=== PATIENT | male | born 1935 | race Caucasian/White ===

== ENCOUNTER 2024-01-14 09:39 | Outpatient (CLI) | payer OTHER, SELFPAY ==
--- OUTSIDE RECORDS SUMMARY | 2024-01-27 23:50 | XMS_ITS | Continuity of Care Document ---
Author Organization [place] [facility] Address [id number] [place] [address] Phone Care Team Providers Care Still Operator Brandy Name Role Phone Weight DO, Antwon Unavailable Unavailable Procedures Procedure Date Obsrv Care D/c Da [facility] Init Obsrv Care-da E [facility] Advance Directives Directive Yes / No Effective Date File Name No Information Encounters Encounter Description Practice Location Reason(s) For Visit Diagnoses Date Provider Providers Copied on Encounter Obsrv Care D/c Da [facility], [address] [address], [place], [place], [id number], tel:[phone] [facility] Hospitalists No Information Weight Antwon. [address] [place] [address], [id number], [place]. tel:[phone] Referring Provider: Antwon Alarcon, [address] [place] [address], [id number] . tel:[phone] In Obsrv Care-da E [facility], [address] [address], [place], [place], [id number], tel:[phone] [facility] Intensivists No Information 5 No Information Family History Family Member Type Diagnosis Age At Onset No Information Payers Payer name Insurance type Covered democrat ID Authoriza timelissa(s) Medicare MB [id number] Social History Type Description Quantity Date Captured Comments Sex Male Smoking Status No Information Chief Complaint And Reason For Visit No Information Reason For Referral Reason For Referral No Information History Of Present Illness Encounter Date Complaint History Of Prese nt Illness No Information Functional Status Date Functional Assessmen t No Information Instructions Date Instruction Additional Infor mation No Information Assessments Type Assessment Date No Information Patient Care Teams Name Effective Dates (start - stop) Status Members No Information
--- OUTSIDE RECORDS SUMMARY | 2024-01-27 23:50 | XMS_ITS | Continuity of Care Document ---
Author Organization [facility] Address [address] [place] [address] Phone Care Team Providers Care Behavioral Medical Director Name Role Phone Néstor THOMAS, Alyssa Unavailable Unavailable Allergies, Adverse Reactions, Alerts Substance Reaction Status Criticality No Known Allergies Active No Inform ation Medications Medication Instructions Dosage Effective Dates (start - stop) Status Comments PROAIR RESPICLICK (unknown strength) Not Available - Active DURLAZA (unknown strength) Not Available - Active APLENZIN (unknown strength) Not Available - Active COMBIVENT RESPIMAT (unknown strength) Not Available - Active LISINOPRIL (unknown strength) Not Available - Active METOPROLOL TARTRATE (unknown strength) Not Available - Active SIMVASTATIN (unknown strength) Not Available - Active VENLAFAXINE HCL ER (unknown strength) Not Available - Active Procedures Procedure Date Office/Outpatient Visit,Est, Mod 2018 X-Ray Exam Lower Spine 2-3 Views 2018 Office/Outpatient Visit,Est, Mod 2017 X-Ray Exam Lower Spine 2-3 Views 2017 Office/Outpatient Visit,Est, Low 2017 Office/Outpatient Visit,Est, Mod 2016 X-Ray Exam Lower Spine 2-3 Views 2016 Office/Outpatient Visit,Est, Mod 2016 X-Ray Exam Lower Spine 2-3 Views 2016 Office/Outpatient Visit,Est, Mod 2016 X-Ray Exam Lower Spine 2-3 Views 2016 Postop Followup Visit X-Ray Exam Lower Spine 2-3 Views 2015 Postop Followup Visit X-Ray Exam Lower Spine 2-3 Views 2015 Postop Followup Visit Lumbar Spine Fusion, Posterolateral Insert Spine Fixation, Posterior 2015 Allograft, Spine Surg, Morselized Autograft, Spine Surgery, Local 016 Pa Assist Lumbar Spine Fusion, Posterola teral Pa Assist Insert Spine Fixation, Posteri or Remove Lumbar Spine Lamina, 3+ Segs Pa Assist Remove Lumbar Spine Lamina, 3+ Segs Office/Outpatient Visit,Est, Mod 2015 Office/Outpatient Visit,Est, Mod 2015 Office/Outpatient Visit,New, Mod 2015 X-Ray Exam Lwr Spine, Min 4 Views Postop followup visit Low back disk surgery/decompress 2007 Added spine disk surgery/decompress Office consultation, moderate 8 X-ray exam lower spine 2-3 views 2007 Advance Directives Directive Yes / No Effective Date File Name No Information Encounters Encounter Description Practice Location Reason(s) For Visit Diagnoses Date Provider Providers Copied on Encounter [facility], [address], [place], [place], [id number], tel:[phone] [facility] No Information 201 9 Mehbod Amir. [facility], [address] [place] [address], [id number], [place]. tel:[phone] Office/Outpa tient Visit,Est, Mod [facility], [address], [place], [place], [id number], [place] tel:[phone] [facility] Low back pain 8-201 9 Mehbod Amir. [facility], [address] [place] [address], [id number], . tel:[phone] Referring Provider: Dionicio Irizarry, [facility], [place], [address]. tel:[phone] Office/Outpa tient Visit,Est, Mod [facility], [address], [place], [place], [id number], [place] tel:[phone] [facility] Low back pain Mar-0 6201 8 Mehbod Amir. [facility], [address] [place] [address], [id number], [place]. tel:[phone] Referring Provider: Dionicio Irizarry, [facility] [address], [place], [address]. tel:[phone] Office/Outpa tient Visit,Est, Low [facility], [address], [place], [place], [id number], [place] tel:[phone] [facility] Radiculopath y, lumbar region 201 8 Mehbod Amir. [facility], [address] [place] [address], [id number], [place]. tel:[phone] Referring Provider: Dionicio Irizarry [facility] [address], [place], [address]. tel:[phone] Office/Outpa tient Visit,Est, Mod [facility], [address], [place], [place], [id number], [place] tel:[phone] [facility], lumbar region May-0 9-201 7 Eckroth Bert. [address] [place] [address], [id number], [place]. tel:[phone] Referring Provider: Dionicio Irizarry [facility] [address], [place], [address]. tel:[phone] Office/Outpa tient Visit,Est, Mod [facility], [address], [place], [place], [id number], [place] tel:[phone] [facility] [place] [facility], lumbar region Nov- 4-201 7 Mehbod Amir. [facility], [address] [place] [address], [id number], [place]. tel:[phone] Referring Provider: Dionicio Irizarry, [facility] [address] [facility], [place], [address]. tel:[phone] Office/Outpa tient Visit,Est, Mod [facility], [address] [place] [address], [id number], tel:[phone] [facility] [place] [facility]icul[facility], lumbar region 3 0-201 7 Mehbod Amir. [facility], [address] [place] [address], [id number], [place]. tel:[phone] Referring Provider: Dionicio Irizarry, [facility] [address] [place] [address], [place], [address]. tel:[phone] [facility], [address] [place] [address], [id number], [place] tel:[phone] [facility] [facility], lumbar region 0-201 6 Mehbod Amir. [facility], [address] [place] [address], [id number], . tel:[phone] Referring Provider: Dionicio Irizarry [facility] [address] [place] [address], [place], [address]. tel:[phone] [facility], [address] [place] [address], [id number], tel:[phone] [facility] [facility]icul[facility], lumbar region May-1 7-201 6 Mehbod Amir. [facility], [address] [place] [address], [id number], [place]. tel:[phone] Referring Provider: Dionicio Irizarry, [facility] [address] [facility], [place], [address]. tel:[phone] [facility], [address] [place] [address], [id number], [place] tel:[phone] [facility] [facility], lumbar region Oct-0 3-201 6 [facility] Bert. [address] [place] [address], [id number], . tel:[phone] Referring Provider: Dionicio Irizarry, [employer] [address] [facility], [place], [address]. tel:[phone] [facility], [address], [place], [place], [id number], [place] tel:[phone] [facility] No Information 0 201 6 Mehbod Amir. [facility], [address] [place] [address] [address], [place], [id number], [place]. tel:[phone] Referring Provider: Dionicio Irizarry, [employer] [address] [place] [address], [place], [address]. tel:[phone] Office/Outpa tient Visit,Est, Mod [facility], [address] [place] [address], [id number], [place] tel:[phone] [facility] [place] Radiculopath y, lumbar regionOther spondylosis, lumbosacral region 2 6 Mehbod Amir. [facility], [address] [place] [address] [place] [address], [id number], [place]. tel:[phone] Referring Provider: Dionicio Irizarry, [employer] [address] [place] [address], [place], [address]. tel:[phone] Office/Outpa tient Visit,Est, Mod [facility], [address], [place], [place], [id number], [place] tel:[phone] [facility] Radicul[facility], lumbar regionOther spondylosis, lumbosacral region 6 Pandiscio Doris. [facility], [address] [place] [address], [address], [place], [place], [id number], [place]. tel:[phone] Referring Provider: Dionicio Irizarry, [employer] [address] [place] [address], [place], [address]. tel:[phone] Office/Outpa tient Visit,New, Mod [facility], [address], [place], [place], [id number], [place] tel:[phone] [facility] Radiculopath y, lumbar regionOther spondylosis, lumbosacral region 6 Shayy George. [facility], [address], [address], [place], [place], [id number], [place]. tel:[phone] Referring Provider: Dionicio Irizarry, [facility], [place], [address]. tel:[phone] Z [facility], [address] [place], [place] [address], [place], [place], [facility], [place] tel:[phone] [facility] No Information 8 No Information Referring Provider: [facility] [address], [place], [address]. [phone] [facility], [address] [place], [place] [address], [place], [place], [facility], [place] [phone] [facility] No Information 8 No Information Referring Provider: [facility] [address], [place], [address]. tel:[phone] Office consultation , moderate Z [facility], [address] [place] [address], [place], [facility], [place] tel:[phone] [facility] No Information 8 No Information Referring Provider: [facility] [address], [place], [address]. tel:[phone] Family History Family Member Type Diagnosis Age At Onset No Information Payers Payer name Insurance type Covered libertarian ID Authoriza tion(s) [employer] Medicare Gold Choice Rajani COLEMAN [id number] [facility] 09 [id number] Social History Type Description Quantity Date Captured Comments Sex Male Smoking Status No Information Chief Complaint And Reason For Visit No Information Reason For Referral Reason For Referral No Information Plan Of Treatment Date Type Action Status Future Order: Radiology Order AP /Lat/Flex/Ext Lumb (APLatFlExL), Ordered on: Ordered History Of Present Illness Encounter Date Complaint History Of Prese nt Illness No Information Functional Status Date Functional Assessmen t No Information Instructions Date Instruction Additional Infor mation Weight management: I nstructed to return to General Practitioner timeframe: 1 Month. Related to Overweight Weight Management Education Rela gerald to Overweight Weight management: I nstructed to return to General Practitioner timeframe: 1 Month. Related to Overweight Weight Management Education Rela gerald to Overweight Blood Pressure Management Relate d to Unspecified Essential Hypertension Instructed to return to General Practitioner timeframe: 1 Month. Related to Unspecified Essential Hypertension Assessments Type Assessment Date No Information Patient Care Teams Name Effective Dates (start - stop) Status Members No Information
--- OUTSIDE RECORDS SUMMARY | 2024-01-27 23:51 | XMS_ITS | Continuity of Care Document ---
Author Name [facility] Organization [facility] Care Team Providers Care Computer Game Tester Name Role Phone [facility] Unavailable Unavailable Problems Combined list of problems from Department of [facility] and [facility] Affairs facilities. It does not include entries that were removed or entered in error. 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 [facility] L/T Use Anticoag (current) Active Condition [facility] Mixed hyperlipidemia Active Condition [facility] 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 Medication Details Route Status Patient Instructions Prescription Expires Prescription Number Last Dispense Date Ordering Provider Order Date Order Qty Source MULTIVITAMI NS CAP/TAB TAKE ONE TABLET BY MOUTH EVERY DAY ORAL ACTIVE DARLINE MIKE 2006 [facility] Allergies, Adverse Reactions, Alerts Combined list of allergies from Department of [facility] and Veterans Affairs facilities. It does not include entries that were removed or entered in error. Substance Category Reaction Severity Reaction type Status Date Reported Comments Source No Known Allergies Drug allergy (disorder) active 09/23/2007 S[facility] Kennedy Immunizations Combined list of available immunizations from the Department of Defense and Veterans Affairs facilities. Immunization Series Date Given Administered By Site Reaction Lot Number CVX Code Drug Glove Turner Status Comments Source INFLUENZA (HISTORICAL) 2006 88 complet ed [facility] PNEUMOCOCCAL, UNSPECIFIED FORMULATION 2006 109 complet ed [facility] INFLUENZA, UNSPECIFIED FORMULATION 2004 88 complet ed [facility] INFLUENZA, UNSPECIFIED FORMULATION 2003 88 complet ed [facility] INFLUENZA, UNSPECIFIED FORMULATION 2002 AKANKSHA AGUILA 88 complet ed [facility] INFLUENZA, UNSPECIFIED FORMULATION 2001 88 complet ed [facility] INFLUENZA, UNSPECIFIED FORMULATION 2000 88 complet ed [facility] PNEUMOCOCCAL, UNSPECIFIED FORMULATION 2000 109 complet [facility] TD(ADULT) UNSPECIFIED FORMULATION 1998 139 complet [facility] Encounters Combined list of: 1) Encounters from Department of [facility] Affairs facilities going back up to thelast 18 months. 2) Encounters from the Department of [facility] facilities going back up to 280 months. Location Location Details Encounter Type Encounter Number Reason For Visit Attending Provider ADM Date DC Date Status Disposition Source [facility] Outpatient Encounter [id number] 07/18 [facility] Procedures Combined list of: 1) Procedures from [facility] facilities going back up to thelast 18 months, not all [place] non-surgical procedures are included; 2) All procedures from the Department [facility] facilities. Procedure Procedure Type Code Date Perfomer Comments Sourc e DIAGNOSTIC ULTRASOUND OF PERIPHERAL VASCULAR SYSTEM 01/23/2004 [facility] CULTURE, BACTERIAL; BLOOD, AEROBIC, WITH ISOLATION AND PRESUMPTIVE IDENTIFICATION OF ISOLATES (INCLUDES ANAEROBIC CULTURE, IF APPROPRIATE) 01/22/2004 [facility] Social History Combined list of available smoking, tobacco, and other social history from Department of Defense and Veterans Affairs facilities. Social History Type Response Date Comment Sourc e Tobacco smoking status NHIS CURRENT TOBACCO USER 07/07/2007 [facility] This section is an empty social history section. [facility] Advance Directives List of completed, amended, or rescinded Advance Directives on record at Department of Veterans Affairs facilities. An actual copy of the Directive is not included. Date Advance Directive Provider Source 06/26/2004 ADVANCE DIRECTIVE SADE KENT I [facility]
--- OUTSIDE RECORDS SUMMARY | 2024-01-27 23:51 | XMS_ITS | Clinical Summary ---
Author Organization [employer] [facility] Address [place], [place] [address] Care Team Providers Care Finishing Range Supervisor Name Role Phone Alyssa Palm MD Unavailable [phone] Grayson Nails MD Unavailable Antonino Cardona DO Primary Care Provider [phone] [facility] Chai Jain Unavailable [phone] Allergies Active Allergy Reactions Criticality Noted Date Comments Cilostazol Dizziness 12/11/2016 Medications Medication Sig Dispensed Refills Start Date End Date Status aspirin (ECOTRIN) 81 mg enteric coated tabletIndications :Multiple lacunar infarcts (HC),Atherosclero sis of [place] coronary artery of [place] heart without angina pectoris,PAD (peripheral artery disease) (HC) Take 1 Tablet (81 mg) by mouth once daily with a meal. 0 02/28/2022 Active albuterol-ipratro pium (DuoNeb) (2.5-0.5 mg) in 3 mL NEBULIZATION solutionIndicatio ns:Mucopurulent chronic bronchitis (HC) Use 3-4 times daily as needed 150 mL 11 07/24/2022 Active Additional Information Patient taking differently: 1 Neb Neb Q 6H PRN, Shortness Of Breath, Wheezing, Use 1-3 times daily as needed, Reported on 01/14/2024 fluticasone (50 mcg per actuation) nasal solution (FLONASE)Indicati ons:Chronic allergic rhinitis Inhale 1-2 Sprays to both nostrils once daily. 48 g 3 07/24/2022 Active albuterol HFA (PRO-AIR; VENTOLIN; PROVENTIL) 90 mcg/actuation inhalerIndication s:Mucopurulent chronic bronchitis (HC) Inhale 1-2 Puffs by mouth every 4 hours if needed for Shortness of Breath 2nd choice or Wheezing 1st choice. 1 Each 1 07/24/2022 Active oxygen-air delivery systems (HOME OXYGEN)Indication s:Mucopurulent chronic bronchitis (HC) Oxygen for home use. Liters per minute: 2 per nasal cannula. Frequency of use: Continuous with portability.;. Length of need: 99 Months. 1 Each 01/16/2023 Active rosuvastatin (CRESTOR) 10 mg tabletIndications :Multiple lacunar infarcts (HC),Mixed hyperlipidemia,PA D (peripheral artery disease) (HC),Atherosclero sis of [place] coronary artery of [place] heart without angina pectoris TAKE 1 TABLET (10 MG) BY MOUTH AT BEDTIME. 90 Tablet 2 08/09/2023 Active carvediloL (COREG) 3.125 mg tabletIndications :Essential hypertension,Athe rosclerosis of [place] coronary artery of [place] heart without angina pectoris TAKE 1 TABLET TWICE DAILY WITH MEALS 180 Tablet 3 09/29/2023 Active gabapentin (NEURONTIN) 100 mg capsuleIndication s:Trigeminal neuralgia Take 4 Capsules (400 mg) by mouth two times daily. 720 Capsule 1 01/22/2024 Active oxygen-air delivery systems (HOME OXYGEN)Indication s:COPD with acute exacerbation (HC) Portable oxygen - carrying style - has home oxygen tanks. Liters per minute: 2 per nasal cannula. Frequency of use: Continuous with portability.;. Length of need: 99 Months. 1 Each 01/22/2024 Active tiotropium (SPIRIVA HANDIHALER) 18 mcg inhalation capsuleIndication s:Mucopurulent chronic bronchitis (HC),COPD mixed type (HC) Inhale 1 Capsule (18 mcg) by mouth once daily. 90 Capsule 3 01/22/2024 Active loratadine (CLARITIN) 10 mg tabletIndications :Chronic allergic rhinitis Take 1 Tablet (10 mg) by mouth once daily. 30 Tablet 07/24/2022 06/05/202 4 Discontinue d(*Patient states no longer taking) buPROPion (Wellbutrin SR) 150 mg Sustained-Release tabletIndications :Major depressive disorder, recurrent episode, mild (HC) Take 1 Tablet (150 mg) by mouth every morning. 90 Tablet 1 07/24/2022 4 Discontinue d(*Med complete/Re gimen complete/Le mallika of care change) tiotropium (SPIRIVA HANDIHALER) 18 mcg inhalation capsuleIndication s:Mucopurulent chronic bronchitis (HC),COPD mixed type (HC) Inhale 1 Capsule (18 mcg) by mouth once daily. 90 Capsule 3 03/04/2023 4 Discontinue d(Reorder (E-cancel not sent)) gabapentin (NEURONTIN) 100 mg capsuleIndication s:Trigeminal neuralgia Take 3 Capsules (300 mg) by mouth two times daily. Take 300mg BID 180 Capsule 5 07/07/2023 4 Discontinue d(Reorder (E-cancel not sent)) sennosides-docusa te (SENOKOT S) (8.6-50 mg) tabletIndications :Other constipation Take 2-3 Tablets by mouth 2 times daily if needed for Constipation. 180 Tablet 1 09/30/2023 4 cefuroxime axetil (CEFTIN) 500 mg tabletIndications :Pneumonia due to COVID-19 virus Take 1 Tablet (500 mg) by mouth two times daily for 5 days. 10 Tablet 01/16/2024 4 Discontinue d(*Med complete/Re gimen complete/Le mallika of care change) dexAMETHasone (DECADRON) 6 mg tabletIndications :COPD with acute exacerbation (HC) Take 1 Tablet (6 mg) by mouth once daily with a meal for 8 doses. 8 Tablet 01/17/2024 4 Hospital, Clinic, or Other Facility Administered Medication Ordered Dose Route Frequency Start Date End Date Status cyanocobalamin (VITAMIN B12) 1,000 mcg/mL injection 1,000 mcgIndications:Vit bae B12 deficiency 1000 mcg IM Q 4 WEEKS (28 DAYS) 01/17/2022 4 Discontinued Active Problems Problem Noted Date Diagnosed Date Weight loss, unintentional 01/15/2024 COPD with acute exacerbation 2/2 COVID-19 PNA Pneumonia due to COVID-19 virus 01/14/2024 Sepsis 2/2 COVID-19 Pnuemonia 01/14/2024 Acute respiratory failure wi th hypoxia 2/2 COVID-PNA & COPD Exacerbation 01/14/2024 Aspiration pneumonia 04/25/2023 Elevated troponin 04/25/2023 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 BPH (benign prostatic hyperplasia) 10/31/2022 10/31/2022 Esophageal reflux 10/31/2022 10/31/2022 Anxiety 08/15/2020 After-cataract of left eye with vision obscured 04/26/2019 Bilateral pseudophakia 04/26/2019 Urinary retention 09/22/2017 Major depressive disorder, recurrent episode, mi ld 09/22/2017 Near syncope 12/31/2016 H/o Multiple lacunar infarcts 12/31/2016 Overview: Head CT on 12/31/16 In the left basal ganglia Macrocytic anemia 12/13/2016 History of DVT (deep vein thrombosis) 04/16/2016 Overview: Unprovoked DVT of right leg in 2004, treated with warfarin for anticoagulation for 6 months and then discontinued. No recurrence. Coronary atherosclerosis 04/12/2016 Overview: Coronary angiogram (08/22/2010): Coronary artery dominance is left. Normal left main coronary artery, left circumflex artery and right coronary artery. The middle left anterior descending artery is 20% obstructed by a single discrete lesion. The distal left anterior descending artery is 20% obstructed by a single discrete lesion. 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 History of smoking 30 or more pack years 016 Macrocytic anemia with vitamin B12 deficiency Overview: 12/2014 - MCV 109 - B12 low at 164 Post herpetic neuralgia 06/08/2013 Prostate nodule 05/15/2012 Mucopurulent chronic bronchitis 10/08/2011 Overview: Pulmonary function test (01/03/2010): Moderately severe obstructive lung disease, mild air trapping, increased obstruction and resistance to airflow, and normal range gas transfer. Spinal stenosis, lumbar joanne on, without neurogenic claudication 06/01/2008 Overview: S/p DECOMPRESSION L1-S1, POSTERIOR SPINE FUSION WITH INSTRUMENTATION L4-5, TRANSFORAMINAL LUMBAR INTERBODY FUSION L4-5??by Dr. Palm on 04/17/16. Essential hypertension 06/01/2008 Mixed hyperlipidemia 06/01/2008 PAD (peripheral artery disease) Claudication in peripheral vascular disease Encounters Date Type Department Care Team Description 01/23/2024 9:00 AM CDT Home Care Visit [facility] [address] [place] [address] Saritha Haines RN SN - NOT TAKEN UNDER HOME CARE - HOME VISIT 01/23/2024 Telephone [facility] [address] [place] [address] Saritha Haines RN Home Care (Not taken under home care - needs outpatient PT and OT orders) 01/22/2024 9:45 AM CDT Office Visit [facility] [address] [place] [address] Antonino Cardona DO Hospital F/U (01/13 discharge ) 01/22/2024 Orders Only [facility] [address] [place] [address] Antonino Cardona DO <No scans attached> 01/21/2024 8:52 AM CDT - 01/21/2024 11:59 PM CDT Hospital Encounter [facility] [address] [place] [address] Neha Castro NP Tierney, Doreen A, ARIK Aspiration pneumonia, unspecified aspiration pneumonia type, unspecified laterality, unspecified part of lung (HC) 01/21/2024 Home Care Visit [facility] [address] [place] [address] Tiny Toledo, FREDDY CARE COORDINATION 01/21/2024 Travel 01/19/2024 Patient Outreach [facility] [address] [place] [address] Desi Allan, RN Primary RN Care Management; Hospital F/U ([facility] 72) 01/14/2024 10:34 AM CDT - 01/16/2024 2:00 PM CDT Hospital Encounter [facility] [address] [place] [address] Kanwal Lin MD Del Castillo, Jennifer Rose F, MD Nguyen, Thao Nguyen Le, KELSI Acute on chronic hypoxic respiratory failure (HC) (Primary Dx); Sepsis, due to unspecified organism, unspecified whether acute organ dysfunction present (HC); COVID-19; Pneumonia due to COVID-19 virus; COPD with acute exacerbation 2/2 COVID-19 PNA; Aspiration pneumonia, unspecified aspiration pneumonia type, unspecified laterality, unspecified part of lung (HC) Discharge Disposition: Home Health 01/14/2024 Travel 01/14/2024 Nurse Triage [facility] [address] [place] [address] Antonino Cardona DO Chest Pain; Difficulty Breathing 11/12/2023 9:00 AM CDT Office Visit [facility] [address] [place] [address] Bethany Zavaleta PA Recheck (Voice) 11/12/2023 Travel from Last 3 Months Immunizations Name Administration Dates Next Due COVID-19 Vaccine Spikevax (M oderna 50mcg/0.5mL) 12YO+ [id number] Formula PF 01/22/2024,06/05/2023 COVID-19 vaccine (Pfizer-Bio NTech 30mcg/0.3mL) 12YO+ BIVALENT PF, MDV 06/06/2022 COVID-19 vaccine (Pfizer-Bio NTech 30mcg/0.3mL) 12YO+ WILSON-SUCROSE PF, MDV 11/22/2021 COVID-19 vaccine (Pfizer-Bio NTech 30mcg/0.3mL) PF, MDV 05/21/2021,10/18/2020,09/27/2020 Influenza Virus, Unspecified 06/11/2007, 06/26/2006,06/24/2005,2003,05/30/2003,05/31/2002,06/11/2001 Influenza, High-dose Inactivated 05/16/2016,06/11,05/26/2014 Influenza, IIV3 (Age >=3 years) 04/30/2013,05/15 Influenza, Inactivated AIIV4 (Age 65+ Years) Preserv Free 05/02/2023,06/06/2022,05/21/2021,2019 Influenza, Inactivated IIV3 (Age 65+ Years) Preserv Free 04/21/2019,06/10/2018,06/23/2017 Pneumococcal Poly,23-Valent (Pneumovax) 05/15/2012 Pneumococcal conj 13-Valent (Prevnar 13) 06/27/2015 Pneumococcal, Unspecified 06/11/2007,06/11/2001 TD, UNSPECIFIED 08/11/1998 Tdap 05/15/2012 Zoster (Zostavax-ZVL, live) 05/26/2014 Family History Medical History Relation Name Comments Heart Disease Father at 67 Heart Disease Mother at 67 Stroke Mother Heart Disease Other all 8 siblings of [place] at ages 50-81 Anesthesia Problem No Family History Blood Disease No Family History Relation Name Status Comments Father (Age 66) [place] Mother (Age 67) hx of CVA Other Social History Tobacco Use Types Packs/Day Years Used Date Smoking Tobacco: Former Cigarettes 1 61 0 [birth year]1954 - 12/24/2015 Smokeless Tobacco: Former Quit: 12/23/2014 Tobacco Cessation:Counseling Given: Yes Comments:1 PPD x 60 years Alcohol Use Standard Drinks/Week Comments Yes 0 (1 standard drink = 0.6 oz pur e alcohol) 1 drink a week PHQ-2 Answer Date Recorded PHQ-2 TOTAL SCORE 1 05/16/2023 Social Connections Answer Date Recorded Frequency of Communication with Friends and Fami ly 0 04/26/2023 Financial Resource Strain Answer Date R ecorded Difficulty of Paying Living Expenses 3 04/26/2023 Difficulty of Paying Living Expenses Not on file 04/26/2023 Food Insecurity Answer Date Recorded Worried About Running Out of Food in the Last Ye ar 1 04/26/2023 Transportation Needs Answer Date Record ed Lack of Transportation (Medical) 1 04/26/2023 Housing Stability Answer Date Recorded Unable to Pay for Housing in the Last Year 1 04/26/2023 Sex and Gender Information Value Date Recorded Sex Assigned at Not on file Gender Identity Not on file Sexual Orientation Not on file Obstetrics History Last Filed Vital Signs Vital Sign Reading Time Taken Comments Blood Pressure 111/64 01/22/2024 9:48 AM CDT Pulse 88 01/22/2024 9:48 AM CDT Temperature 36.5 ??C (97.7 ??F) 01/16/2024 8:11 AM CD T Respiratory Rate 18 01/16/2024 9:00 AM CDT Oxygen Saturation 93% 01/22/2024 9:48 AM CDT Inhaled Oxygen Concentration - - Weight 71.7 kg (158 lb) 01/22/2024 9:48 AM CDT Height 190.5 cm (6' 3) 01/14/2024 10:35 AM CDT Body Mass Index 19.75 01/14/2024 10:35 AM CDT Plan of Treatment Upcoming Encounters Date Type Department Care Team (Late st Contact Info) Description 02/20/2024 10:35 AM CDT Office Visit [facility] [address] [place] [address] Antonino Cardona DO [address] [place] [address] 05/13/2024 8:00 AM CDT Office Visit [facility] [address] [place] [address] Yue Cabrera PA [address] [place] [address] Health Maintenance Due Date Last Done Comments Zoster (shingles) series for age 50+ (2 of 3) 07/21/2014 05/26/2014 Tetanus booster 05/15/2022 05/15/2012, 08/11/1998 Influenza for age 65+ 04/11/2024 05/02/2023 , 06/06/2022, 05/21/2021, Additional history exists BMI (ht and wt on same day) for age 18+ 05/16/2024 05/16/2023, 02/28/2022, 09/18/2021, Additional history exists Medicare Wellness for age 65+ 05/16/2024, 02/28/2022, 06/19/2020, Additional history exists Depression screening for age 12+ 05/19/2024 05/19/2023, 05/16/2023, 05/15/2023, Additional history exists Tdap Completed 05/15/2012 Pneumococcal series for age 65+ Completed 06/27/2015, 05/15/2012, 06/11/2007, Additional history exists COVID-19 vaccine series Completed 01/22/20, 06/05/2023, 06/06/2022, Additional history exists Medical Devices Implanted Type Area Cocoa Mill Operator Device Identifier Shelf Expiration Date Model / Serial / Lot Dru Lmbr 40x5.5mm Tsrh 3d Cvd Titnm - [id number] Implanted:Qty: 1 on 04/17/2016 by Alyssa Palm MD at [facility] Spine Implants N/A: Spine Medtronic Spine/Ortho [id number]# / / Set Screw Lmbr Tsrh 3dx - [id number] Implanted:Qty: 4 on 04/17/2016 by Alyssa Palm MD at [facility] N/A: Spine Medtronic Spine/Ortho [id number]# / / Cnnctr Lmbr Sm Tsrh 3dx Offsettitnm - [id number] Implanted:Qty: 4 on 04/17/2016 by Alyssa Palm MD at [facility] N/A: Spine Medtronic Spine/Ortho [id number]# / / Screw Lmbr Post 6.5x45mm Tsrh 3dx Og Thin Va - [id number] Implanted:Qty: 1 on 04/17/2016 by Alyssa Palm MD at [facility] N/A: Spine Medtronic Spine/Ortho [id number]# / / Screw Lmbr Post 6.5x50mm Tsrh 3dx Og Thin Va - [id number] Implanted:Qty: 3 on 04/17/2016 by Alyssa Palm MD at [facility] N/A: Spine Medtronic Spine/Ortho [id number]# / / Dru Lmbr 35x5.5mm Tsrh 3d Cvd [facility] - [id number] Implanted:Qty: 1 on 04/17/2016 by Alyssa Palm MD at [facility] N/A: Spine Medtronic Spine/Ortho [id number] / / Procedures Procedure Name Priority Date/Time Associated Diagnosis Comments XR VIDEO SWALLOW W SPEECH Routine 01/21/2024 9:38 AM CDT Aspiration pneumonia, unspecified aspiration pneumonia type, unspecified laterality, unspecified part of lung (HC) GLUCOSE METER Routine 01/16/2024 8:07 AM CDT SCAN-CARDIAC STRIP 01/16/2024 8: 03 AM CDT POTASSIUM Early AM 01/16/2024 6:33 AM CDT MAGNESIUM Early AM 01/16/2024 6:33 AM CDT GLUCOSE METER Routine 01/15/2024 9:21 PM CDT GLUCOSE METER Routine 01/15/2024 5:01 PM CDT GLUCOSE METER Routine 01/15/2024 11:38 AM CDT MAGNESIUM Timed 01/15/2024 9:08 AM CDT SCAN-CARDIAC STRIP 01/15/2024 8: 34 AM CDT GLUCOSE METER Routine 01/15/2024 7:21 AM CDT CBC WITH AUTO DIFFERENTIAL Early AM 01/15/2024 6:14 AM CDT BASIC METABOLIC PANEL Early AM 01/15/2024 6:14 AM CDT CBC WITH AUTO DIFFERENTIAL Early AM 01/15/2024 6:14 AM CDT URINE CULTURE ERIS 01/15/2024 2:49 AM CDT URINALYSIS MICROSCOPIC STAT 2:49 AM CDT UA W/ SEDIMENT EXAM REFLEXED PER CRITERIA STAT 01/15/2024 2:49 AM CDT GLUCOSE METER Routine 01/14/2024 9:59 PM CDT SCAN-CARDIAC STRIP 01/14/2024 4: 43 PM CDT MAGNESIUM ERIS 01/14/2024 1:36 PM CDT TROPONIN T (HS) ONE TIME Timed 01/14/2024 1:36 PM CDT BLOOD CULTURE STAT 01/14/2024 11:21 AM CDT BLOOD GAS,VENOUS STAT 01/14/2024 11:2 1 AM CDT PRO-BNP STAT 01/14/2024 11:21 AM CDT TROPONIN T (HS) ACUTE W/2HR REFLEX STAT 01/14/2024 11:21 AM CDT PROCALCITONIN STAT 01/14/2024 11:21 AM CDT PROTIME-INR STAT 01/14/2024 11:21 AM CDT COMP METABOLIC PANEL STAT 01/14/2024 11:21 AM CDT LACTATE VENOUS STAT 01/14/2024 11:21 AM CDT CBC WITH AUTO DIFFERENTIAL STAT 01/14/2024 11:06 AM CDT BLOOD CULTURE STAT 01/14/2024 11:06 AM CDT CBC WITH AUTO DIFFERENTIAL STAT 01/14/2024 11:06 AM CDT XR CHEST 1 VIEW PORTABLE STAT 01/14/2024 11:02 AM CDT EKG 12 LEAD STAT 01/14/2024 10:47 AM CDT COVID-19 MOLECULAR STAT 01/14/2024 10 :47 AM CDT from Last 3 Months Results * XR VIDEO SWALLOW AND TREATMENT W SPEECH (01/21/2024 9:38 AM CDT) Anatomical Region Laterality Modality Esophagus Computed Radiogr aphy, Other 01/21/2024 9:45 AM CDT Narrative 01/21/2024 9:45 AM CDT For Patients: ??As a result of the Cures Act, medical imaging exams and procedure reports are released immediately into your electronic medical record. ??You may view this report before your referring provider. ??If you have questions, please contact your health care provider. INDICATION: Aspiration pneumonia. TECHNIQUE: Video swallowing study. Fluoroscopy time 1:00 60 seconds. Multiple cine images. FINDINGS: Normal emptying of the oral cavity. Penetration and estela aspiration with thin liquids. Some improvement with a chin tuck. Penetration also occurs with additional substances including nectar and to a lesser degree honey, pudding and barium solids which in some cases pool and have a spillover into the larynx without estela aspiration. Please see the speech therapist`s report further details. Dictated by Nicholas Waldrop MD @ 01/21/2024 9:45:53 AM (Electronically Signed) Procedure Note Arnel Waldrop MD - 01/21/2024 For Patients: As a result of the Cures Act, medical imagingexams and procedure reports are released immediately into your electronicmedical record. You may view this report before your referring provider.If you have questions, please contact your health care provider. INDICATION: Aspiration pneumonia. TECHNIQUE: Video swallowing study. Fluoroscopy time 1:00 60 seconds. Multiple cine images. FINDINGS: Normal emptying of the oral cavity. Penetration and estela aspiration withthin liquids. Some improvement with a chin tuck. Penetration also occurs with additional substances including nectar and toa lesser degree honey, pudding and barium solids which in some cases pooland have a spillover into the larynx without estela aspiration. Please see the speech therapist`s report further details. Dictated by Nicholas Waldrop MD @ 01/21/2024 9:45:53 AM (Electronically Signed) Neha Molina Castro [employer]PL[employer]IVES TRUCK [employer]IVER FLUOROSCOPY * GLUCOSE METER (01/16/2024 8:07 AM CDT) Only the most recent of6 resultswithin the time period is included. GLUCOSE METER 85 65 - 100 mg/dL 01/16/2024 8:11 AM CDT [facility] Blood BLOOD SPECIMEN / Unknown 01/16/2024 8:07 AM CDT 01/16/2024 8:11 AM CDT Yue Grijalva MD CHEMISTR Y [facility] [address] [place] [address] * SCAN-CARDIAC STRIP (01/16/2024 8:03 AM CDT) Scanner OTHER * POTASSIUM (01/16/2024 6:33 AM CDT) POTASSIUM 4.5 3.5 - 5.1 mmol/L 01/16/2024 7:17 AM CDT [facility] Blood BLOOD SPECIMEN / Unknown Butterfly / Unknown 01/16/2024 6:33 AM CDT 01/16/2024 6:37 AM CDT Yue Grijalva MD CHEMISTR Y [facility] [address] [place] [address] * MAGNESIUM (01/16/2024 6:33 AM CDT) Only the most recent of3 resultswithin the time period is included. MAGNESIUM 2.1 1.6 - 2.4 mg/dL 01/16/2024 7:27 AM CDT [facility] Blood BLOOD SPECIMEN / Unknown Butterfly / Unknown 01/16/2024 6:33 AM CDT 01/16/2024 6:37 AM CDT Yue Grijalva MD CHEMISTR Y [facility] [address] [place] [address] * SCAN-CARDIAC STRIP (01/15/2024 8:34 AM CDT) Scanner OTHER * (ABNORMAL) CBC WITH AUTO DIFFERENTIAL (01/15/2024 6:14 AM CDT) Only the most recent of2 resultswithin the time period is included. WHITE BLOOD COUNT 11.5(H) 4.5 - 11.0 thou/cu mm 01/15/2024 7:03 AM [facility] RED BLOOD COUNT 4.48 4.30 - 5.90 mil/cu mm 01/15/2024 7:03 AM [facility] HEMOGLOBIN 13.8 13.5 - 17.5 g/dL 01/15/2024 7:03 AM [facility] HEMATOCRIT 41.4 37.0 - 53.0 % 01/15/2024 7:03 AM [facility] MCV 92 80 - 100 fL 01/15/2024 7:03 AM [facility] MCH 30.8 26.0 - 34.0 pg 01/15/2024 7:03 AM [facility] MCHC 33.3 32.0 - 36.0 g/dL 01/15/2024 7:03 AM [facility] RDW 13.4 11.5 - 15.5 % 01/15/2024 7:03 AM [facility] PLATELET COUNT 172 140 - 440 thou/cu mm 01/15/2024 7:03 AM [facility] MPV 8.9 6.5 - 11.0 fL 01/15/2024 7:03 AM [facility] % NEUT 91.4 % 01/15/2024 7:03 AM [facility] % LYMPH 5.7 % 01/15/2024 7:03 AM [facility] % MONO 2.7 % 01/15/2024 7:03 AM [facility] % EOS 0.0 % 01/15/2024 7:03 AM [facility] % BASO 0.2 % 01/15/2024 7:03 AM [facility] ABSOLUTE NEUTROPHILS 10.5(H) 1.7 - 7.0 thou/cu mm 01/15/2024 7:03 AM [facility] ABSOLUTE LYMPHOCYTES 0.7(L) 0.9 - 2.9 thou/cu mm 01/15/2024 7:03 AM [facility] ABSOLUTE MONOCYTES 0.3 <0.9 thou/cu mm 01/15/2024 7:03 AM [facility] ABSOLUTE EOSINOPHILS 0.0 <0.5 thou/cu mm 01/15/2024 7:03 AM [facility] ABSOLUTE BASOPHILS 0.0 <0.3 thou/cu mm 01/15/2024 7:03 AM [facility] Blood BLOOD SPECIMEN / Unknown Butterfly / Unknown 01/15/2024 6:14 AM CDT 01/15/2024 6:41 AM CDT Jesika Cornejo MD HEMATOLOGY [facility] [address] [place] [address] * (ABNORMAL) BASIC METABOLIC PANEL (01/15/2024 6:14 AM CDT) SODIUM 140 136 - 145 mmol/L 01/15/2024 7:46 AM [facility] POTASSIUM 3.9 3.5 - 5.1 mmol/L 01/15/2024 7:46 AM [facility] CHLORIDE 106 98 - 107 mmol/L 01/15/2024 7:46 AM [facility] CO2,TOTAL 25 22 - 29 mmol/L 01/15/2024 7:46 AM [facility] ANION GAP 9 5 - 18 01/15/2024 7:46 AM [facility] GLUCOSE 133(H) 70 - 99 mg/dL 01/15/2024 7:46 AM [facility] CALCIUM 8.8 8.8 - 10.2 mg/dL 01/15/2024 7:46 AM [facility] BUN 18 8 - 23 mg/dL 01/15/2024 7:46 AM [facility] CREATININE 0.63(L) 0.70 - 1.20 mg/dL 01/15/2024 7:46 AM [facility] BUN/CREAT RATIO 29(H) 10 - 20 7:46 AM [facility] eGFR >90 >90 mL/min/1.7 3m2 01/15/2024 7:46 AM [facility] Comment:As of 2021, eG FR is calculated by the CKD-EPI creatinine equation without race adjustment. ??eGFR can be influenced by muscle mass, exercise, and diet. ??The reported eGFR is an estimation only and is only applicable if the renal function is stable. Blood BLOOD SPECIMEN / Unknown Butterfly / Unknown 01/15/2024 6:14 AM CDT 01/15/2024 6:41 AM T Jesika Cornejo MD CHEMISTRY [facility] [address] [place] [address] * (ABNORMAL) URINALYSIS MICROSCOPIC (01/15/2024 2:49 AM T) RBC 0-2 0-2, None Seen /HPF 01/15/2024 3:01 AM T [facility] WBC 11-25(A) 0-2, 3-5, None Seen /HPF 01/15/2024 3:01 AM [facility] BACTERIA Many(A) None Seen, Rare, Few Bacteria/ HPF 01/15/2024 3:01 AM T [facility] EPITHELIAL CELLS Few None Seen, Few Epi/HPF 01/15/2024 3:01 AM T [facility] Mucus Present 01/15/2024 3:01 AM T [facility] HYALINE CASTS 0-2 0-2, 3-5 /LPF 01/15/2024 3:01 AM T [facility] CALCIUM OXALATE CRYSTALS Present(A) (none) 01/15/2024 3:01 AM CDT [facility] Urine URINE SPECIMEN / Unknown Non-Blood / Unknown 01/15/2024 2:49 AM CDT 01/15/2024 2:53 AM CDT Kanwal Lin MD URINE Performing Organization Address [facility]/ZIP Co de Phone Number [facility] [address] [place] [phone] * URINE CULTURE (01/15/2024 2:49 AM CDT) CULTURE <10,000 CFU/mL multiple organisms 01/16/2024 11:33 AM CDT [facility] Urine URINE SPECIMEN / Unknown Non-Blood / Unknown 01/15/2024 2:49 AM CDT 01/15/2024 2:53 AM CDT Nicole Burris RN MICROBIOLOGY [facility] [address] [place] [address], * (ABNORMAL) URINALYSIS W REFLEX MICROSCOPIC IF POSITIVE (01/15/2024 2:49 AM CDT) COLOR Treasure(A) Yellow Color 01/15/2024 2:57 AM CDT [facility] CLARITY Slightly Cloudy(A) Clear Clarity 01/15/2024 2:57 AM T [facility] SPECIFIC GRAVITY,URINE 1.025 1.010, 1.015, 1.020, 1.025 01/15/2024 2:57 AM T [facility] PH,URINE 5.5 6.0, 7.0, 8.0, 5.5, 6.5, 7.5, 8.5 01/15/2024 2:57 AM T [facility] UROBILINOGEN, QUALITATIVE Normal Normal EU/dl 01/15/2024 2:57 AM [facility] PROTEIN, URINE Negative Negative mg/dL 01/15/2024 2:57 AM T [facility] GLUCOSE, URINE Negative Negative mg/dL 01/15/2024 2:57 AM [facility] KETONES,URINE Trace(A) Negative mg/dL 01/15/2024 2:57 AM [facility] BILIRUBIN,URI NE Negative Negative 01/15/2024 2:57 AM [facility] OCCULT BLOOD,URINE Negative Negative 01/15/2024 2:57 AM [facility] NITRITE Positive(A) Negative 01/15/2024 2:57 AM [facility] LEUKOCYTE ESTERASE Small(A) Negative 01/15/2024 2:57 AM [facility] Urine URINE SPECIMEN / Unknown Non-Blood / Unknown 01/15/2024 2:49 AM CDT 01/15/2024 2:53 AM CDT Kanwal Lin MD URINE Performing Organization Address [facility] Co de Phone Number [facility] [address] [place] [address] * SCAN-CARDIAC STRIP (01/14/2024 4:43 PM CDT) Scanner OTHER * (ABNORMAL) TROPONIN T (HS) ONE TIME (01/14/2024 1:36 PM CDT) TROPONIN T HS 49(H) 6-15 ng/L ng/L 01/14/2024 1:59 PM CDT [facility] Blood BLOOD SPECIMEN / Unknown Venipuncture / Unknown 01/14/2024 1:36 PM CDT 01/14/2024 1:39 PM CDT Kanwal Lin MD CHEMISTRY [facility] [address] [place] [address] * (ABNORMAL) TROPONIN T (HS) ACUTE W/2HR REFLEX (01/14/2024 11:21 AM CDT) TROPONIN T HS 46(H) 6-15 ng/L ng/L 01/14/2024 11:53 AM CDT [facility] Blood BLOOD SPECIMEN / Unknown Butterfly / Unknown 01/14/2024 11:21 AM CDT 01/14/2024 11:24 AM CDT Narrative [facility] - 01/14/2024 11:53 AM CDT hs-cTnT (Elecsys Troponin T Gen 5) concentration (s) above the sex-specific 99th percentile (16 ng/L or greater for males or 11 ng/L or greater for females) are indicative of myocardial injury. If initial hs-cTnT <=100 ng/L at presentation, a 0h/2h ABSOLUTE (ng/L) delta change (rising or falling) of >=10 ng/L suggests a significant change, whereas a 0h/2h delta change <=3 ng/L suggests no significant change. If initial hs-cTnT >100 ng/L at presentation, a 0h/2h/ RELATIVE (percent, %) delta change of 20% is suggested to distinguish patients with acute vs. chronic myocardial injury. There are multiple etiologies that can cause hs-cTnT increases above the 99th percentile (myocardial injury) other than acute myocardial infarction. Clinical context and careful clinical evaluation are critical for diagnosis and risk-stratification. The diagnosis of acute myocardial infarction requires a rising and/or falling pattern in hs-cTnT concentrations with at least one value above the sex-specific 99th percentile PLUS at least one of the following clinical criteria: ischemic symptoms, new or presumed new significant ST-T wave changes or new LBBB, development of pathological Q waves, imaging evidence of new loss of viable myocardium or new regional wall motion abnormality, or identification of intracoronary atherothrombosis or an acute angiographic culprit on coronary angiography. In appropriate low-risk patients with a non-ischemic electrocardiogram without active chest pain with a symptom onset >3-hours without recurrence, a single initial hs-cTnT<6 ng/L identifies patient with a very low risk in emergency department patient population. Kanwal Lin MD CHEMISTRY Performing Organization Address [facility] Co de Phone Number [facility] [address] [place] [address] * LACTATE VENOUS (01/14/2024 11:21 AM CDT) LACTATE,VENOUS 1.8 0.5 - 2.0 mmol/L 01/14/2024 11:43 AM CDT [facility] Blood BLOOD SPECIMEN / Unknown Butterfly / Unknown 01/14/2024 11:21 AM CDT 01/14/2024 11:24 AM CDT Kanwal Lin MD CHEMISTRY Performing Organization Address [facility] de Phone Number [facility] [address] [place] [address] * (ABNORMAL) PROCALCITONIN (01/14/2024 11:21 AM CDT) PROCALCITONIN 0.77(H) ng/ml 01/14/2024 12:07 PM CDT [facility] Blood BLOOD SPECIMEN / Unknown Butterfly / Unknown 01/14/2024 11:21 AM CDT 01/14/2024 11:24 AM CDT Narrative [facility] - 01/14/2024 12:07 PM CDT Procalcitonin for initial assessment of Lower Respiratory Tract Infection: Results Interpretation <0.10 ng/mL Antibiotic therapy strongly discoraged. ??Indicates absent of bacterial infection. * 0.10 - 0.25 ng/mL Antibiotic therapy discouraged. ??Bacterial infection unlikely. * 0.26 - 0.50 ng/mL Antibiotic therapy encouraged. ??Bacterial infection possible. >0.50 ng/mL Antibiotic therapy strongly encouraged. ??Suggestive of presence of bacterial infection. *Antibiotic therapy should be considered regardless of PCT result if the patient is clinically unstable, is at high risk for adverse outcome, has strong evidence of bacterial pathogen, or the clinical context indicates antibiotic therapy is warranted. ??If antibiotics are withheld, reassess if symptoms persist/worsen and/or repeat PCT measurement within 6-24 hours. ? In order to assess treatment success and to support a decision to discontinue antibiotic therapy, follow up samples should be tested once every 1-2 days, based upon physician discretion taking into account patient's evolution and progress. Procalcitonin for initial assessment of severe sepsis risk: Results Interpretation <0.5 ng/ml A PCT level below 0.5 ng/ml on the first day of ICU admission is associated with a low risk for progression to severe sepsis and/or septic shock. > 2.0 ng/mL A PCT level above 2.0 ng/mL on the first day of ICU admission is associated with a high risk for progression to severe sepsis and/or septic shock. Note: Concentrations < 0.5 ng/mL do not exclude an infection, on account of localized infections (without systemic signs) which can be associated with such low concentrations, or a systemic infection in its initial stages(< 6 hours). Furthermore, increased procalcitonin can occur without infection. PCT concentrations between 0.5 and 2.0 ng/mL should be interpreted taking into account the patient's history. It is recommended to retest PCT within 6-24 hours if any concentrations < 2 ng/mL are obtained. Kanwal Lin MD SEND OUTS [facility] [address] [place] [id number] * BLOOD CULTURE X2 (01/14/2024 11:21 AM CDT) Only the most recent of2 resultswithin the time period is included. [facility] CULTURE No Growth. 01/19/2024 2:19 PM T [facility] Blood BLOOD SPECIMEN / Unknown Butterfly / Unknown 01/14/2024 11:21 AM CDT 01/14/2024 11:24 AM CDT Kanwal Lin MD MICROBIOLOGY Performing Organization Address [facility]/ZIP Co de Phone Number [facility] [address] [place] [address] * (ABNORMAL) BLOOD GAS,VENOUS (01/14/2024 11:21 AM CDT) PH, VENOUS 7.36 7.32 - 7.43 01/14/2024 11:29 AM [facility] PCO2, VENOUS 58(H) 41 - 51 mmHg 01/14/2024 11:29 AM [facility] PO2, VENOUS 20(L) 35 - 40 mmHg 01/14/2024 11:29 AM [facility] HCO3,VENOUS 33(H) 22 - 29 mmol/L 01/14/2024 11:29 AM [facility] BASE EXCESS, VENOUS, POCT 5.6(H) -2.0 - 3.0 01/14/2024 11:29 AM [facility] O2 SATURATION, VENOUS 34(L) 70 - 75 % 01/14/2024 11:29 AM [facility] PATIENT TEMPERATURE 37.0 Degrees C 01/14/2024 11:29 AM T [facility] Blood VENOUS BLOOD SPECIMEN / Unknown Butterfly / Unknown 01/14/2024 11:21 AM CDT 01/14/2024 11:24 AM CDT Kanwal Lin MD CHEMISTRY Performing Organization Address City/[facility]/ZIP Co de Phone Number [facility] [address] [place] [address] * PROTIME-INR (01/14/2024 11:21 AM CDT) INR 0.9 <1.3 01/14/2024 12:[address] [facility] PROTIME 10.5 10.3 - 12.3 sec 01/14/2024 12:[address] [facility] Blood BLOOD SPECIMEN / Unknown Butterfly / Unknown 01/14/2024 11:21 AM CDT 01/14/2024 11:24 AM CDT [facility] - 01/14/2024 12:57 PM CDT ?Therapeutic Range 2.0-3.0 for most anticoagulated patients 2.5-3.5 or 4.0 for high risk patients The INR is only used for patients on stable oral anticoagulant therapy. It makes no significant contribution to the diagnosis or treatment of patients whose Protime is prolonged for other reasons. INR results are increased when heparin levels exceed 1.0 U/mL, which corresponds to an aPTT >125 seconds if the patient is on UFH. Kanwal Lin MD HEMATOLOGY Performing Organization Address City/State/[facility] Co de Phone Number [facility] [address] [phone] * (ABNORMAL) PRO-BNP (01/14/2024 11:21 AM CDT) [facility] PRO-BNP 2,324(H) <450 pg/mL 01/14/2024 11:54 AM CDT [facility] Blood BLOOD SPECIMEN / Unknown Butterfly / Unknown 01/14/2024 11:21 AM CDT 01/14/2024 11:24 AM CDT [facility] - 01/14/2024 11:54 AM CDT The following cut-points have been suggested for the use of proBNP for the diagnostic evaluation of heart failure (HF) in patient with acute dyspnea. Patients with eGFR >= 60 Diagnosis (rule in CHF) ? <50 Years Old ?450 pg/mL 50 - 75 Years Old ?900 pg/mL >75 Years Old ? 1800 pg/mL Exclusion (rule out CHF) Age Independent ?300 pg/mL A cutoff of 1200 pg/mL for patients with an eGFR <60 yields a diagnostic sensitivity of 89% and specificity of 72% for acute congestive heart failure. ? Kanwal Lin MD SEND OUTS [facility] [address] [place] [address] * (ABNORMAL) COMP METABOLIC PANEL (01/14/2024 11:21 AM T) SODIUM 141 136 - 145 mmol/L 01/14/2024 11:54 AM [facility] POTASSIUM 4.5 3.5 - 5.1 mmol/L 01/14/2024 11:54 AM [facility] CHLORIDE 103 98 - 107 mmol/L 01/14/2024 11:54 AM [facility] CO2,TOTAL 28 22 - 29 mmol/L 01/14/2024 11:54 AM [facility] ANION GAP 10 5 - 18 01/14/2024 11:54 AM [facility] GLUCOSE 101(H) 70 - 99 mg/dL 01/14/2024 11:54 AM [facility] CALCIUM 9.6 8.8 - 10.2 mg/dL 01/14/2024 11:54 AM [facility] BUN 12 8 - 23 mg/dL 01/14/2024 11:54 AM [facility] CREATININE 0.83 0.70 - 1.20 mg/dL 01/14/2024 11:54 AM [facility] BUN/CREAT RATIO 14 10 - 20 11:54 AM [facility] eGFR 84(L) >90 mL/min/1.7 3m2 01/14/2024 11:54 AM [facility] Comment:As of 2021, eG FR is calculated by the CKD-EPI creatinine equation without race adjustment. ??eGFR can be influenced by muscle mass, exercise, and diet. ??The reported eGFR is an estimation only and is only applicable if the renal function is stable. ALBUMIN 4.0 4.0 - 4.9 g/dL 01/14/2024 11:54 AM [facility] PROTEIN,TOTAL 7.5 6.0 - 8.0 g/dL 01/14/2024 11:54 AM [facility] BILIRUBIN,TOTAL 1.0 0.0 - 1.2 mg/dL 01/14/2024 11:54 AM [facility] ALK PHOSPHATASE 119 40 - 129 IU/L 01/14/2024 11:54 AM [facility] ALT (SGPT) <5(L) 10 - 50 IU/L 01/14/2024 11:54 AM [facility] AST (SGOT) 16 10 - 50 IU/L 01/14/2024 11:54 AM [facility] Blood BLOOD SPECIMEN / Unknown Butterfly / Unknown 01/14/2024 11:21 AM CDT 01/14/2024 11:24 AM CDT Kanwal Lin MD CHEMISTRY [facility] [address] [place] [address] * XR CHEST 1 VIEW PORTABLE (01/14/2024 11:02 AM CDT) Anatomical Region Laterality Modality HEART, THORAX, CHEST Digital Rad iography 01/14/2024 11:1 6 AM CDT Narrative 01/14/2024 11:16 AM CDT For Patients: ??As a result of the Cures Act, medical imaging exams and procedure reports are released immediately into your electronic medical record. ??You may view this report before your referring provider. ??If you have questions, please contact your health care provider. Indication: Sepsis Technique: Chest 1 view Comparison: Chest x-ray 04/25/2023 Findings/Impression: Cardiovascular and mediastinum: Normal heart size with atherosclerotic calcification. Lungs and pleural space: No pleural effusion or pneumothorax. Mild hyperinflation suggesting underlying emphysema or reactive airways disease. Areas of discoid atelectasis at the right lung base. More patchy opacities at the left lung base consistent with atelectasis or pneumonia. Bones and soft tissues: Osteopenia. Dictated by Archie Lehman MD @ 01/14/2024 11:16:42 AM (Electronically Signed) Procedure Note Archie Lehman MD - 01/14/2024 For Patients: As a result of the Cures Act, medical imagingexams and procedure reports are released immediately into your electronicmedical record. You may view this report before your referring provider.If you have questions, please contact your health care provider. Indication: Sepsis Technique: Chest 1 view Comparison: Chest x-ray 04/25/2023 Findings/Impression: Cardiovascular and mediastinum: Normal heart size with atheroscleroticcalcification. Lungs and pleural space: No pleural effusion or pneumothorax. Mildhyperinflation suggesting underlying emphysema or reactive airwaysdisease. Areas of discoid atelectasis at the right lung base. More patchyopacities at the left lung base consistent with atelectasis or pneumonia. Bones and soft tissues: Osteopenia. Dictated by Archie Lehman MD @ 01/14/2024 11:16:42 AM (Electronically Signed) Kanwal Lin MD GENERAL IMAGING * EKG 12 Lead (01/14/2024 10:47 AM CDT) Interpretation Sinus tachycardia Right bundle branch block Cannot rule out Inferior infarct , age undetermined Abnormal ECG When compared with ECG of 25-APR-2023 16:32, Premature ventricular complexes are no longer Present Right bundle branch block is now Present Criteria for Anteroseptal infarct are no longer Present BEYOND NOW Ventricular Rate 140 BPM BEYOND NOW Atrial Rate 140 BPM BEYOND NOW P-R Interval 116 ms BEYOND NOW QRS Duration 122 ms BEYOND NOW QT 300 ms BEYOND NOW QTc 458 ms BEYOND NOW P [place] 39 degrees BEYOND NOW R [place] -102 degrees BEYOND NOW T [place] 62 degrees BEYOND NOW 01/14/2024 10:4 7 AM CDT 01/14/2024 2:18 PM CDT Kanwal Lin MD EKG ORD BEYOND NOW [place], [place] * (ABNORMAL) COVID-19 MOLECULAR (01/14/2024 10:47 AM CDT) COVID 19 ALLCRISTHIAN MOLECULAR Detected(A) Not detected 01/14/2024 11:15 AM CDT [facility] TESTING LABORATORY [facility] 01/14/2024 11:15 AM CDT [facility] Comment:Specimen submitted t o [facility] for testing. Other SPECIMEN FROM NASOPHARYNGEAL STRUCTURE / Unknown Non-Blood / Unknown 01/14/2024 10:47 AM CDT 01/14/2024 10:52 AM CDT Kanwal Lin MD MICROBIOLOGY [facility] [address] [place] [address] from Last 3 Months Additional Health Concerns Infection Onset Date Last Indicated COVID-19 01/14/2024 01/14/2024 Advance Directives Documents on File Type Date Recorded Patient Log Handler Expl anation Healthcare Directive 04/26/2023 023 * Full Code (Latest Code Status on File) Date Activated Date Inactivated Comments 01/14/2024 1:49 PM 01/16/2024 4:38 PM Question Answer Comments Code Status Discussion: Reviewed Preferences * Full Code Date Activated Date Inactivated Comments 04/26/2023 12:18 AM 04/27/2023 3:07 PM Question Answer Comments Code Status Discussion: Reviewed Preferences * Full Code Date Activated Date Inactivated Comments 04/17/2016 8:40 PM 04/20/2016 7:19 PM * Full Code Date Activated Date Inactivated Comments 04/17/2016 9:30 AM 04/17/2016 8:40 PM * Full Code Date Activated Date Inactivated Comments 06/01/2008 1:28 PM 06/02/2008 12:28 PM Care Teams Finishing Range Supervisor Relationship Specialty Start Date End Date Antonino Cardona DO [address] [place] [id number] PCP - General Family Practice 07/24/22 Alyssa Palm MD [address] [place] [address] Surgery - Orthopedics 09/22/17 Grayson Nails MD [address] [address] Surgery - Vascular 09/22/17 [facility] [address] [place] [address] 01/16/24
== END 2024-01-14 09:40 | disposition home or self-care (01) ==
LOC: AMB 01-27 23:49
PROVIDERS: PCP Family Medicine; Visit Provider Family Medicine
DX: R06.09 Other forms of dyspnea (principal)
CPT/HCPCS: A0425; A0427

== ENCOUNTER 2024-09-02 16:58 | Outpatient (CLI) | payer MEDICARE, SELFPAY | END 2024-09-02 16:59 | disposition home or self-care (01) | LOC: AMB 09-09 10:41 | PROVIDERS: PCP Family Medicine; Visit Provider Emergency Medicine Emergency Medical Services | DX: R55 Syncope and collapse (principal) ==

== ENCOUNTER 2024-09-02 17:00 | Outpatient (CLI) | payer MEDICARE, SELFPAY | END 2024-09-02 17:01 | disposition home or self-care (01) | LOC: AMB 09-12 01:30 | PROVIDERS: PCP Family Medicine; Visit Provider Emergency Medicine Emergency Medical Services | DX: S09.90XA Unspecified injury of head, initial encounter (principal); W07.XXXA Fall from chair, initial encounter; Y92.9 Unspecified place or not applicable | CPT/HCPCS: A0425; A0427 ==